=== PATIENT | male | born 1955 | race Caucasian/White ===

== ENCOUNTER 2022-01-03 00:17 | Inpatient (IN) | payer OTHER ==
[~2022-01-03] VITALS: Ht 175.3 cm; Wt 77.1 kg
[2022-01-03 01:48] LABS: BASOPHILS ABSOLUTE AUTO 0.03 K/mm3 (0.00-0.23); BASOPHILS PERCENT AUTO 0 % (0-2); EOSINOPHILS ABSOLUTE AUTO 0.03 K/mm3 (0.00-0.68); EOSINOPHILS PERCENT AUTO 0 % (0-6); Hematocrit 48.3 % (37.0-53.0); Hemoglobin 16.3 g/dL (13.5-17.5); IMMATURE GRAN ABSOLUTE AUTO 0.04 K/mm3 (0.00-0.10); IMMATURE GRAN PERCENT AUTO 0 % (0-1); LYMPHOCYTES PERCENT AUTO 14 % (21-46); MONOCYTES PERCENT AUTO 13 % (4-13); Mean Corpuscular HGB 29.7 pg (26.0-34.0); Mean Corpuscular HGB Conc 33.7 g/dL (31.5-36.5); Mean Corpuscular Volume 88 fL (80-100); Mean Platelet Volume 9.6 fL (9.1-12.4); NEUTROPHILS ABSOLUTE AUTO 6.53 K/mm3 (1.96-9.15); NEUTROPHILS PERCENT AUTO 72 % (41-73); Platelet Count 387 K/mm3 (150-400); RDW Coefficient Variation 13.2 % (11.7-14.2); RDW Standard Deviation 43.1 fL (35.1-46.3); Red Blood Cell Count 5.48 M/mm3 (4.30-5.90); White Blood Cell Count 9.13 K/mm3 (4.00-11.30)
[2022-01-03 02:07] LABS: Albumin, Blood 3.7 g/dL (3.4-5.0); Albumin/Globulin Ratio 0.9 (0.8-1.8); Bilirubin, Total 0.8 mg/dL (0.1-1.0); Bun/Creatinine Ratio 33.5 (12.0-20.0); Calcium, Blood 8.9 mg/dL (8.5-10.1); Creatinine, Blood 1.58 mg/dL (0.60-1.20); Globulin, Blood 4.2 g/dL (2.2-4.0); Potassium, Blood 4.1 mmol/L (3.5-5.5); Total Protein, Blood 7.9 g/dL (6.4-8.2)
[2022-01-03 04:55] LABS: International Normalized Ratio 1.03; Prothrombin Time Results 10.8 Sec (9.7-11.5)
[2022-01-03 05:49] LABS: Influenza A, PCR NEGATIVE (NEGATIVE); Influenza B, PCR NEGATIVE (NEGATIVE); Resp Syncytial Virus, PCR NEGATIVE (NEGATIVE); SARS-Cov-2 (COVID-19) PCR, MMC NEGATIVE (NEGATIVE)
--- NOTE | 2022-01-03 10:42 | NUR ---
PT TO OR AT APROX 1042.
--- NOTE | 2022-01-03 16:30 | NUR ---
PT ARRIVED BACK TO ROOM FROM PACU AT APROX 1600. MIDLINE DRESSING WITH SMALL DIME SIZE AREA AMT SS DRAINAGE. PT SLEEPING BUT AWAKENS EASILY TO VERBAL STIMULI. NGT TO LIS.
--- NOTE | 2022-01-03 16:51 | NUR ---
PT REPORTS FEELING THE NEED TO HAVE A BM, ASSISTED ON TO BEDPAN. SMALL AMT APROX 50ML REDDISH/BROWN LIQUID BM.
--- NOTE | 2022-01-03 18:40 | NUR ---
RED STOOL PT HAD LARGE RED STOOL IN BED. THIS RN + EMS DIRECTOR AT BEDSIDE. INFORMED + NEW ORDERS OBTAINED. VSS. LINENS CHANGED. CALL LIGHT WITHIN REACH. AWAITING LAB.
[2022-01-03 19:01] LABS: Hematocrit 36.3 % (37.0-53.0); Hemoglobin 12.4 g/dL (13.5-17.5)
[2022-01-04 00:29] LABS: Hematocrit 33.3 % (37.0-53.0); Hemoglobin 10.9 g/dL (13.5-17.5); Mean Corpuscular HGB 30.4 pg (26.0-34.0); Mean Corpuscular HGB Conc 32.7 g/dL (31.5-36.5); Mean Platelet Volume 10.1 fL (9.1-12.4); Platelet Count 302 K/mm3 (150-400); RDW Coefficient Variation 13.4 % (11.7-14.2); RDW Standard Deviation 45.9 fL (35.1-46.3); Red Blood Cell Count 3.59 M/mm3 (4.30-5.90); White Blood Cell Count 4.23 K/mm3 (4.00-11.30)
[2022-01-04 00:31] LABS: Mean Corpuscular Volume 93 fL (80-100)
[2022-01-04 00:44] LABS: Bun/Creatinine Ratio 35.9 (12.0-20.0); Calcium, Blood 7.5 mg/dL (8.5-10.1); Creatinine, Blood 1.53 mg/dL (0.60-1.20)
[2022-01-04 00:53] LABS: BAND PERCENT MAN 19 % (0-8); BASOPHILS ABSOLUTE MAN 0.04 K/mm3 (0.00-0.23); BASOPHILS PERCENT MAN 1 % (0-2); EOSINOPHILS PERCENT MAN 0 % (0-6); LYMPHOCYTES ABSOLUTE MAN 0.63 K/mm3 (0.84-5.20); LYMPHOCYTES PERCENT MAN 15 % (21-46); MONOCYTES ABSOLUTE MAN 0.67 K/mm3 (0.16-1.47); MONOCYTES PERCENT MAN 16 % (4-13); NEUTROPHILS ABSOLUTE MAN 2.87 K/mm3 (1.96-9.15); SEG NEUTROPHILS PERCENT MAN 49 % (41-73); TOTAL CELLS COUNTED 100
[2022-01-04 06:16] LABS: Hematocrit 31.9 % (37.0-53.0); Hemoglobin 10.6 g/dL (13.5-17.5)
--- NOTE | 2022-01-04 06:18 | NUR ---
SHIFT SUMMARY: PT IN BED AAOX4. VS WNL HR 110. MONITORING. O2 AT 2L NC. NGT TO WALL SX LOW INTER. IV IN RIGHT ARM PATENT WITH LR INFUSING ORDERED. MIDLINE DRESSING ON ABDOMEN C/D/I WITH RODRIGO. BARONE CATHETER IN PLACE NHAN COLORED URINE PRESENT. PASSING LARGE AMOUNT OF JOSE DANIEL BLOOD WITH CLOTS. DIAPER CHANGED X2 ON SHIFT. DR WALTER AT BEDSIDE EXAMINED PT. WILL CONTINUE TO MONITOR AND MAINTAIN ALL PRECAUTION. BG AT 235MG/DL. MEDICATED PER EMAR TOLERATED WELL. MANUFACTURING PROJECT ENGINEER PUMP PT SELF MEDICATE.
[2022-01-04 12:30] LABS: Hematocrit 26.5 % (37.0-53.0); Hemoglobin 8.9 g/dL (13.5-17.5)
[2022-01-04 17:05] LABS: Hematocrit 28.4 % (37.0-53.0); Hemoglobin 9.7 g/dL (13.5-17.5)
--- NOTE | 2022-01-04 19:03 | NUR ---
SUMMARY PT H&H IMPROVED FROM 1200 TO 1800. NG PUTTING OUT DARK BROWN FLUID. MEDICATED ONCE DURING SHIFT FOR NAUSEA. ADVISED PT TO SLOW DOWN ON ICE CHIPS. COVERED CBGS PER ORDERS. USING CLASS C DRIVER PRN FOR PAIN. CALL LIGHT AND CLASS C DRIVER IN REACH.
[2022-01-05 04:44] LABS: Hematocrit 26.6 % (37.0-53.0); Hemoglobin 8.5 g/dL (13.5-17.5); Mean Corpuscular HGB 29.9 pg (26.0-34.0); Mean Corpuscular Volume 94 fL (80-100); Mean Platelet Volume 10.2 fL (9.1-12.4); Platelet Count 248 K/mm3 (150-400); RDW Coefficient Variation 13.4 % (11.7-14.2); Red Blood Cell Count 2.84 M/mm3 (4.30-5.90); White Blood Cell Count 4.97 K/mm3 (4.00-11.30)
[2022-01-05 05:02] LABS: Anion Gap 5 mmol/L (6-16); Blood Urea Nitrogen 43 mg/dL (8-24); Bun/Creatinine Ratio 53.6 (12.0-20.0); CO2, Blood 27 mmol/L (21-32); Calcium, Blood 7.5 mg/dL (8.5-10.1); Chloride, Blood 103 mmol/L (98-108); Glomerular Filtration Rate >60 (60-); Glucose, Blood 226 mg/dL (70-99); Phosphorus, Blood 1.8 mg/dL (2.5-4.9); Potassium, Blood 4.1 mmol/L (3.5-5.5); Sodium, Blood 135 mmol/L (136-145)
[2022-01-05 05:35] LABS: BAND PERCENT MAN 6 % (0-8); BASOPHILS PERCENT MAN 0 % (0-2); EOSINOPHILS ABSOLUTE MAN 0.09 K/mm3 (0.00-0.68); EOSINOPHILS PERCENT MAN 2 % (0-6); LYMPHOCYTES % ATYPICAL MANUAL 1 % (0-0); LYMPHOCYTES ABSOLUTE MAN 0.84 K/mm3 (0.84-5.20); LYMPHOCYTES PERCENT MAN 16 % (21-46); METAMYELOCYTE ABSOLUTE MAN 0.04 K/mm3 (0.00-0.00); METAMYELOCYTE PERCENT MAN 1 % (0-0); MONOCYTES ABSOLUTE MAN 0.59 K/mm3 (0.16-1.47); MONOCYTES PERCENT MAN 12 % (4-13); MYELOCYTE ABSOLUTE MAN 0.09 K/mm3 (0.00-0.00); MYELOCYTE PERCENT MAN 2 % (0-0); NEUTROPHILS ABSOLUTE MAN 3.28 K/mm3 (1.96-9.15); SEG NEUTROPHILS PERCENT MAN 60 % (41-73); TOTAL CELLS COUNTED 100
--- NOTE | 2022-01-05 06:23 | NUR ---
SHIFT SUMMARY: PT IN BED AAOX4. VS WNL. O2 AT 2L NC. NGT IN PLACE TO LIS WITH BROWNISH DRAINAGE 500ML OUTPUT ON SHIFT. IV IN RIGHT ARM INFUSING ORDERED TOLERATING WELL. SHIPPING AND RECEIVING SUPERVISOR PUMP SELF MEDICATE WITH FENTANYL. ABD. DRESSING MIDLINE WITH SMALL DRY BLOOD. PT COMPLAINS OF SOME PAIN AND NAUSEA. MONITORING AND MAINTAINING ALL PRECAUTIONS.
--- NOTE | 2022-01-05 15:57 | NUR ---
DR WALTER IN TO SEE PT/FAMILY
--- NOTE | 2022-01-05 17:04 | NUR ---
SUMMARY NG HAD 375 OUT THIS SHIFT. CLAMPED NG PER ORDERS. INSTRUCTED PT TO LET STAFF KNOW IF BECOMES NAUSEATED. DC'D BARONE CATH. STARTED PPN PER ORDERS. ASSISTED PT TO CHAIR W/GAIT BELT. LEGS WEAK/UNSTEADY. PT NOW SITTING UP IN CHAIR W/INSIDE BARREL LATHE OPERATOR AND CALL LIGHT IN REACH.
--- NOTE | 2022-01-05 22:36 | NUR ---
pt was complaining of being too warm, retook vitals per rn request. pt now has two fans on him and is stripped of blankets trying to cool down.
--- NOTE | 2022-01-06 04:47 | NUR ---
PT IS ALERT AND ORIENTED X4. LUNGS ARE CLEAR. BS HYPOACTIVE AND SEMI FIRM. NAUSEATED AT THE BEGINNING OF THE SHIFT; NG TUBE GOT UNCLAMPPED. INCISION COVERED WITH KARLO DRESSING. VOIDING THRU THE NIGHT USING THE URINAL. UP TO THE COMMODE ONCE WITH ONE ASSISTS. FENTANYL CAR CONDITIONER FOR PAIN. PPN AT 93 ML/HR. CBG EVERY 6 HRS. WILL CONTINUE TO MONITOR
[2022-01-06 05:34] LABS: Hematocrit 24.8 % (37.0-53.0); Hemoglobin 8.2 g/dL (13.5-17.5); Mean Corpuscular HGB 30.1 pg (26.0-34.0); Mean Corpuscular HGB Conc 33.1 g/dL (31.5-36.5); Mean Corpuscular Volume 91 fL (80-100); Mean Platelet Volume 10.3 fL (9.1-12.4); Platelet Count 294 K/mm3 (150-400); RDW Coefficient Variation 13.1 % (11.7-14.2); RDW Standard Deviation 43.5 fL (35.1-46.3); Red Blood Cell Count 2.72 M/mm3 (4.30-5.90); White Blood Cell Count 6.73 K/mm3 (4.00-11.30)
[2022-01-06 06:03] LABS: BAND PERCENT MAN 16 % (0-8); BASOPHILS PERCENT MAN 0 % (0-2); EOSINOPHILS ABSOLUTE MAN 0.06 K/mm3 (0.00-0.68); EOSINOPHILS PERCENT MAN 1 % (0-6); LYMPHOCYTES ABSOLUTE MAN 1.21 K/mm3 (0.84-5.20); LYMPHOCYTES PERCENT MAN 18 % (21-46); METAMYELOCYTE ABSOLUTE MAN 0.06 K/mm3 (0.00-0.00); METAMYELOCYTE PERCENT MAN 1 % (0-0); MONOCYTES ABSOLUTE MAN 0.87 K/mm3 (0.16-1.47); MONOCYTES PERCENT MAN 13 % (4-13); MYELOCYTE ABSOLUTE MAN 0.13 K/mm3 (0.00-0.00); MYELOCYTE PERCENT MAN 2 % (0-0); NEUTROPHILS ABSOLUTE MAN 4.37 K/mm3 (1.96-9.15); SEG NEUTROPHILS PERCENT MAN 49 % (41-73); TOTAL CELLS COUNTED 100
[2022-01-06 06:13] LABS: Anion Gap 4 mmol/L (6-16); Blood Urea Nitrogen 21 mg/dL (8-24); CO2, Blood 30 mmol/L (21-32); Calcium, Blood 7.5 mg/dL (8.5-10.1); Chloride, Blood 102 mmol/L (98-108); Creatinine, Blood 0.58 mg/dL (0.60-1.20); Glomerular Filtration Rate >60 (60-); Glucose, Blood 241 mg/dL (70-99); Magnesium, Blood 2.7 mg/dL (1.6-2.4); Phosphorus, Blood 1.4 mg/dL (2.5-4.9); Potassium, Blood 3.9 mmol/L (3.5-5.5); Sodium, Blood 136 mmol/L (136-145); Triglycerides 137 mg/dL (30-160)
--- NOTE | 2022-01-06 06:44 | NUR ---
FENTANYL LABORATORY TECHNOLOGY TEACHER USED 200 MCG.
--- NOTE | 2022-01-06 12:06 | NUR ---
01/06/22 1206 Adela Wu VERIFICATIONS: EDIT CHART.
--- NOTE | 2022-01-06 18:29 | NUR ---
SHIFT SUMMARY PT POD 0 COLECTOMY. MIDLINE INCISION W/PICCO DRESSING-DIME SZ AMT DRY SS DRAINAGE PRESENT, DRESSING COMPRESSED. PT HAS FENTYNAL ENERGY ANALYST FOR PAIN, REPORTS PAIN IS TOLERABLE 2/10-APPEARS TO REST COMFORTABLY T/O SHIFT. PT UP TO CHAIR AND SHOWER 1 ASSIST W/FWW FOR ASSISTANCE WITH LINES. LUNGS DIM IN BASES, PT ENCOURAGED TO USE INCENTIVE SPIROMETER, DEMONSTRATES USE. PT TOLERATING SIPS/CHIPS WITH NO N/V, REPORTS SMALL AMTS FLATUS-NO BM. PPN RUNNING PER EMAR.
[2022-01-07 04:30] LABS: Hemoglobin 7.6 g/dL (13.5-17.5); Mean Corpuscular Volume 91 fL (80-100); Mean Platelet Volume 9.9 fL (9.1-12.4); NRBC ABSOLUTE 0.03 K/mm3 (0.00-0.02); NRBC Auto 0.5 /100 WBC (0.0-0.2); Platelet Count 285 K/mm3 (150-400); RDW Coefficient Variation 13.2 % (11.7-14.2); RDW Standard Deviation 43.5 fL (35.1-46.3); Red Blood Cell Count 2.53 M/mm3 (4.30-5.90); White Blood Cell Count 6.62 K/mm3 (4.00-11.30)
[2022-01-07 04:51] LABS: Anion Gap 5 mmol/L (6-16); Blood Urea Nitrogen 14 mg/dL (8-24); Bun/Creatinine Ratio 23.6 (12.0-20.0); CO2, Blood 29 mmol/L (21-32); Calcium, Blood 7.7 mg/dL (8.5-10.1); Chloride, Blood 104 mmol/L (98-108); Creatinine, Blood 0.59 mg/dL (0.60-1.20); Glomerular Filtration Rate >60 (60-); Glucose, Blood 228 mg/dL (70-99); Magnesium, Blood 2.2 mg/dL (1.6-2.4); Potassium, Blood 3.7 mmol/L (3.5-5.5); Sodium, Blood 138 mmol/L (136-145)
[2022-01-07 04:59] LABS: BAND PERCENT MAN 13 % (0-8); BASOPHILS PERCENT MAN 0 % (0-2); EOSINOPHILS PERCENT MAN 0 % (0-6); LYMPHOCYTES ABSOLUTE MAN 1.65 K/mm3 (0.84-5.20); LYMPHOCYTES PERCENT MAN 25 % (21-46); METAMYELOCYTE ABSOLUTE MAN 0.06 K/mm3 (0.00-0.00); METAMYELOCYTE PERCENT MAN 1 % (0-0); MONOCYTES ABSOLUTE MAN 1.32 K/mm3 (0.16-1.47); MONOCYTES PERCENT MAN 20 % (4-13); MYELOCYTE ABSOLUTE MAN 0.19 K/mm3 (0.00-0.00); MYELOCYTE PERCENT MAN 3 % (0-0); NEUTROPHILS ABSOLUTE MAN 3.37 K/mm3 (1.96-9.15); SEG NEUTROPHILS PERCENT MAN 38 % (41-73); TOTAL CELLS COUNTED 100
--- NOTE | 2022-01-07 07:13 | NUR ---
POD 4 S/P COLECTOMY. PT RESTING IN BED THIS AM, VSS. KARLO DRESSING INTACT W/NO INCREASED DRNG. BT MORE ACTIVE THIS AM, PT PASSING QUITE A BIT OF FLATUS. PT HAD NO C/O N/V, NAWAF ICE CHIPS AND SIPS OF WATER. PAIN MGD W/TESTING ANALYST W/REP RELIEF. URINE EARLY BREASTFEEDING CARE SPECIALIST IN COLOR THIS AM, PT VOIDING W/O DIFFICULTY. PT UP TO SOB W/SBA, NAWAF WELL.
--- NOTE | 2022-01-07 09:12 | NUR ---
PT HAD LARGE LOOSE MAROON BM, NO BRIGHT RED BLOOD NOTED.
--- NOTE | 2022-01-07 19:23 | NUR ---
SHIFT SUMMARY PT POD 4 COLECTOMY. MIDLINE INCISION WITH PICCO C/D/I. PT HAS DONE WELL T/O SHIFT, AMBULATING IN ROOM/TO BATHROOM AND UP TO RECLINER. 2 LARGE MAROON BM AND REPORTS FLATUS. PT ADVANCED TO CLEAR LIQUID DIET, PIE MAKER MACHINE DC'D AND STARTED ON PO PAIN MEDICATION. PPN RUNNING PER EMAR.
[2022-01-08 04:42] LABS: Hematocrit 23.7 % (37.0-53.0); Hemoglobin 7.7 g/dL (13.5-17.5); Mean Corpuscular HGB 29.8 pg (26.0-34.0); Mean Corpuscular HGB Conc 32.5 g/dL (31.5-36.5); Mean Corpuscular Volume 92 fL (80-100); NRBC ABSOLUTE 0.02 K/mm3 (0.00-0.02); NRBC Auto 0.3 /100 WBC (0.0-0.2); Platelet Count 331 K/mm3 (150-400); RDW Coefficient Variation 13.5 % (11.7-14.2); RDW Standard Deviation 44.5 fL (35.1-46.3); Red Blood Cell Count 2.58 M/mm3 (4.30-5.90); White Blood Cell Count 6.73 K/mm3 (4.00-11.30)
--- NOTE | 2022-01-08 05:04 | NUR ---
PT IS A&O, SBA TO BR AND IS ABLE TO VERBALIZE NEEDS. ARRIVES TO HOSPITAL ON TUESDAY FOR LARGE INTESTINAL MASS. PT IS CURRENTLY ON PPN, TOLERATING GOAL RATE OF 93ML PER HOUR. Q6 BS CHECKS, HAVE BEEN 180-250 REQUIRING REGULAR INSULIN COVERAGE. PT HAS BEEN ABLE TO WALK THIS SHIFT AND WAS ABLE TO VOID AND HAVE A BM. PT REQUESTS THAT PAIN MEDICINE BE WITHHELD D/T NIGHTMARES AND POOR SLEEP, EDUCATED PT ON PAIN CONTROL TECHNIQUES THAT CAN BE USED. PT H&H IS 7.7.
[2022-01-08 05:05] LABS: BAND PERCENT MAN 20 % (0-8); BASOPHILS PERCENT MAN 0 % (0-2); EOSINOPHILS PERCENT MAN 3 % (0-6); LYMPHOCYTES ABSOLUTE MAN 1.88 K/mm3 (0.84-5.20); LYMPHOCYTES PERCENT MAN 28 % (21-46); METAMYELOCYTE PERCENT MAN 3 % (0-0); MONOCYTES ABSOLUTE MAN 1.54 K/mm3 (0.16-1.47); MONOCYTES PERCENT MAN 23 % (4-13); MYELOCYTE ABSOLUTE MAN 0.13 K/mm3 (0.00-0.00); MYELOCYTE PERCENT MAN 2 % (0-0); NEUTROPHILS ABSOLUTE MAN 2.75 K/mm3 (1.96-9.15); SEG NEUTROPHILS PERCENT MAN 21 % (41-73); TOTAL CELLS COUNTED 100
--- NOTE | 2022-01-08 19:15 | NUR ---
SHIFT SUMMARY PT POD #5 FOR WAI COLECTOMY DUE TO BOWEL OBSTRUCTION. NEW CANCER DIAGNOSIS. A/O X4; PLEASANT AND COOPERATIVE WITH CARE. TOLERATING CLEAR LIQUID DIET AND MOVED TO FULL LIQUID DIET. MEDICATED FOR PAIN X1 THIS SHIFT. TPN QUIN. JULIÁN. WILL REPORT TO GUILHERME GO.
--- NOTE | 2022-01-09 00:05 | NUR ---
PT REPORTS ROOM FEELING COLD TONIGHT.WARM BLANKETS WERE GIVEN.PT HAS BEEN RECEIVING NORCO FOR PAIN,BUT AT THIS TIME,C/O NAUSEA.MED WITH ZOFRAN IV. ABD DISTENDED WITH TINKLING BTS.REPORTED PT HAD BM TODAY. REQUESTING APPLE JUICE.I DISCUSSED CBG WITH PT AND BROUGHT APPLE JUICE SPLIT WITH H2O AND ICE FOR AFTER NAUSEA RESOLVED.ASKED PT TO CALL FOR ANY NEEDS.
--- NOTE | 2022-01-09 01:30 | NUR ---
PT VERB UPSET DUE TO BEING DISTURBED BY PAS ALARM.PT REMOVED PUMPS.IRONWORKER MACHINE OPERATOR REPORTED PT VERB BEING UNCOMFORTABLE AND UNABLE TO SLEEP. I OFFERED IV PAIN MEDS PT REFUSED.STATED UNSURE IF IT WOULD GIVE HIM BAD DREAMS.ASKING IF IT WOULD HAPPEN? I TOLD PT EACH PERSON REACTS DIFFERENTLY UNCLEAR IF IT MIGHT HAPPEN PT REPORTS HAS HX BAD DREAMS WITH MEDS IN PAST.PT RAISING VOICE SAYING HE ALREADY TOLD US THAT HE DOESNT WANT TO TAKE ANYTHING AND THE FACT THAT I CAN NOT SAY FOR SURE HE WILL NOT HAVE "WILD" DREAMS IS "BULLSHIT" STATES IT IS A STRAIGHT FORWARD AND COMMON SENSE QUESTION AND I SHOULD KNOW THE ANSWER.PT ALSO COMPLAINS ABOUT WARM AND COLD TEMP FLUCTUATIONS THIS SHIFT.ADVISED PT HEATING SYSTEM HAS SEEMED TO HAVE MORE FLUCTUATIONS TONIGHT THAN USUAL AND I APOLOGIZED FOR THIS.PT STATES NURSES ARE "MESSING WITH" HEATING SYSTEM.OFFERED MORE WARM BLANKETS AND PT HAS FAN AT BEDSIDE.PT ALSO C/O EVERY LITTLE NOISE DISTURBING HIM. OFFERED EAR PLUGS WHICH PT ALSO DECLINED STATING HE CAN NOT WEAR THEM. PT CURRENTLY STATED IS COMFORTABLE AND WANTS TO BE LEFT ALONE. ASKED PT TO CALL FOR ANY NEEDS AND CLOSED DOOR PER PT INSTRUCT.
--- NOTE | 2022-01-09 06:56 | NUR ---
SUMMARY PT SLEEPING, HAD LARGE SOFT BROWN BM TONIGHT.NO BLEEDING NOTED.
--- NOTE | 2022-01-09 13:21 | NUR ---
PT REPORTS FEELING IMPROVED AFTER EATING LUNCH.
--- NOTE | 2022-01-09 17:03 | NUR ---
SUMMARY NO ACUTE CHANGES T/O SHIFT. MEDICATED PT ONCE THIS AFTERNOON FOR ABDOMINAL PAIN AND THIS EVENING FOR CHAPA PAIN PER ORDERS. PT FELT IMPROVED AFTER LUNCH AND SHOWER. ORDERS TO ADVANCE TO REGULAR DIET FOR DINNER. CALL LIGHT IN REACH.
--- NOTE | 2022-01-10 04:42 | NUR ---
SHIFT SUMMARY PT RESTED OFF AND T/O SHIFT. PT DIET WAS ADVANCED YESTERDAY TO REGULAR, PT REPORTS THAT HE ATE MOST OF WHAT WAS ON HIS PLATE AND ONLY LEFT ABOUT HALF OF A CHICKEN BREAST, BUT ATE EVERYTHING ELSE ON HIS PLATE. PT HAD 4-5 BOWEL MOVEMENTS THIS SHIFT. SOME FORMED STOOLS AND SOME WERE SOMEWHAT LOOSE. PT DENIES ANY NAUSEA OR VOMITTING. MEDICATED FOR CHAPA THIS SHIFT WITH EFFECT. PT HAS BEEN INDEPENDENT IN THE ROOM. KARLO DRESSING PLACE, CLEAN AND DRY WITH NO NEW DRAINAGE. PLAN IS FOR POSSIBLE DC TODAY. BED IN LOWEST POSITION, CALL LIGHT WITHIN REACH.
[2022-01-10] MEDS ORDERED: HYDR1TAB94 PO (12:55)
--- NOTE | 2022-01-10 13:25 | NUR ---
DISCHARGED REVIEWED DC INSTRUCTIONS W/PT; VERBALIZED UNDERSTANDING. DC'D IV, CATHETER INTACT. REMOVED KARLO DRESSING AND PLACED MEDIPORE TO ABD INCISION. PROVIDED DRESSINGS FOR PT. PT LEFT UNIT IN WC, W/POSSESSIONS, DC PAPERWORK, PRESCRIPTION, AND DRESSINGS ACCOMPANIED BY FAMILY.
[2022-02-18] MEDS ORDERED: POLY500 PO (16:13)
[2022-02-18] MEDS ORDERED: METF500 PO (16:14)
== END 2022-01-10 13:25 | disposition home or self-care (01) | DRG 330 ==
LOC: ER 00:17 → SURS 04:11
PROVIDERS: Student in an Organized Health Care Education/Training Program; ADMIT Surgery
PROC: 0DBN0ZZ Excision of Sigmoid Colon, Open Approach (ICD-10-PCS; principal; 2022-01-03 11:00)
DX: C18.7 Malignant neoplasm of sigmoid colon (principal); C77.2 Secondary and unspecified malignant neoplasm of intra-abdominal lymph nodes; D62 Acute posthemorrhagic anemia; Z20.822 Contact with and (suspected) exposure to COVID-19; E83.39 Other disorders of phosphorus metabolism; E11.9 Type 2 diabetes mellitus without complications; F17.210 Nicotine dependence, cigarettes, uncomplicated; Z98.890 Other specified postprocedural states; Z28.21 Immunization not carried out because of patient refusal
CPT/HCPCS: 0241U; 36415; 71045; 74177; 80048; 80053; 82947; 83036; 83605; 83690; 83735; 84100; 84478; 85014; 85018; 85025; 85610; 85730; 86850; 86900; 86901; 93005; 93010; 96374; 96375; 99285-25; A9270; C9113; J0295; J1100; J1815; J1885; J2270; J2405; J2704; J2710; J3010; J3411; J7030; J7040; J7042; J7050; J7060; J7120; Q9967

== ENCOUNTER 2022-02-24 09:20 | Day surgery (SDC) | payer OTHER ==
[~2022-02-24] VITALS: Ht 175.3 cm; Wt 80.1 kg
[~2022-02-24 09:20] MED LIST: HYDR1TAB94 PO; METF500 PO; POLY500 PO
--- NOTE | 2022-02-24 10:54 | NUR ---
Ambulatory in Day Surgery History, Chart, Medications and Allergies reviewed before start of procedure. Lungs clear T/O to Auscultation. Patient confirms NPO status and agrees with scheduled surgery. Pre-Op teaching done. Pt verbalizes understanding. Patient States Post-Procedure ride home has been arranged.
--- NOTE | 2022-02-24 13:37 | NUR ---
Ambulatory in Day SurgeryBair Paws warming gown applied. Discharge instructions reviewed with patient. Patient verbalizes understanding. Copy given to patient to take home. History, Chart, Medications and Allergies reviewed before start of procedure.Patient States Post-Procedure ride home has been arranged. Discharged via wheelchair to private car for ride home.
== END 2022-02-24 14:07 | disposition home or self-care (01) ==
LOC: ORSCMMR 09:20 → ORD 10:45 → ORSCMMR 10:45
PROVIDERS: Surgery
PROC: 05HM33Z Insertion of Infusion Device into Right Internal Jugular Vein, Percutaneous Approach (ICD-10-PCS; principal; 2022-02-24 10:45)
PROC: B543ZZA Ultrasonography of Right Jugular Veins, Guidance (ICD-10-PCS; principal; 2022-02-24 10:45)
DX: C18.9 Malignant neoplasm of colon, unspecified (principal); C78.6 Secondary malignant neoplasm of retroperitoneum and peritoneum; I10 Essential (primary) hypertension; J44.9 Chronic obstructive pulmonary disease, unspecified; F17.210 Nicotine dependence, cigarettes, uncomplicated; E11.9 Type 2 diabetes mellitus without complications; Z79.84 Long term (current) use of oral hypoglycemic drugs
CPT/HCPCS: 77001; 82947; C1788; J0690; J1100; J1642; J2250; J2405; J2704; J3010; J7120

== ENCOUNTER 2023-04-01 07:30 | Day surgery (SDC) | payer OTHER ==
[~2023-04-01] VITALS: Ht 175.3 cm; Wt 91.9 kg
[2023-04-01] MEDS ORDERED: Prinivil10 MG (07:43)
[2023-04-01] MEDS ORDERED: OLME20 (07:44)
[2023-04-01] MEDS ORDERED: INSULANI (07:45)
[2023-04-01 09:56] VITALS: BP 162/68
== END 2023-04-01 09:49 | disposition home or self-care (01) ==
LOC: ORSCSDS 07:30
PROVIDERS: Surgery
PROC: 0DBH8ZX Excision of Cecum, Via Natural or Artificial Opening Endoscopic, Diagnostic (ICD-10-PCS; principal; 2023-04-01 08:45)
PROC: 0DBK8ZX Excision of Ascending Colon, Via Natural or Artificial Opening Endoscopic, Diagnostic (ICD-10-PCS; principal; 2023-04-01 08:45)
PROC: 0DBN8ZX Excision of Sigmoid Colon, Via Natural or Artificial Opening Endoscopic, Diagnostic (ICD-10-PCS; principal; 2023-04-01 08:45)
DX: Z12.11 Encounter for screening for malignant neoplasm of colon (principal); Z85.038 Personal history of other malignant neoplasm of large intestine; C78.6 Secondary malignant neoplasm of retroperitoneum and peritoneum; D12.0 Benign neoplasm of cecum; D12.2 Benign neoplasm of ascending colon; D12.5 Benign neoplasm of sigmoid colon; K63.5 Polyp of colon; E11.9 Type 2 diabetes mellitus without complications; F17.210 Nicotine dependence, cigarettes, uncomplicated; Z79.4 Long term (current) use of insulin; Z79.84 Long term (current) use of oral hypoglycemic drugs; Z79.899 Other long term (current) drug therapy
CPT/HCPCS: 82947; 88305; J2704; J7120

== ENCOUNTER 2024-09-28 09:07 | Day surgery (SDC) | payer OTHER ==
[2024-09-28] VITALS (7 sets, daily range): BP systolic 168–193; BP diastolic 64–82
[~2024-09-28] VITALS: Ht 175.3 cm; Wt 85.8 kg
[~2024-09-28 09:07] MED LIST changes: +INSULANI; +OLME20; +Prinivil10 MG; +propofoL 20 ML IV ONE
[2024-09-28] MEDS ORDERED: CeFAZolin Sodium 2,000 MG in NS 100 ML IV SCH (09:15)
[2024-09-28] MEDS ORDERED: Lactated Ringer's 1,000 ML IV SCH (09:15)
[2024-09-28] MEDS ORDERED: FARXIGA10 MG PO (09:49)
[2024-09-28] MEDS ORDERED: SEMGLEE (Y100 UNIT/2 SC (09:49)
[2024-09-28] MEDS ORDERED: LISI20 PO (09:49)
[2024-09-28] MEDS ORDERED: METFORMIN HCL500 M3 PO (09:50)
[2024-09-28] MEDS ORDERED: ROSUVASTATIN CA40 MG PO (09:50)
[2024-09-28] MEDS ORDERED: METOPROLOL SUCC25 MG PO (09:50)
[2024-09-28] MEDS ORDERED: EPCLUSA 400 MG1 EAC1 PO (09:54)
[2024-09-28] MEDS ORDERED: CICLOPIROX60 ML TOP (09:54)
[2024-09-28] MEDS ORDERED: Bupivacaine 0.5% HCl 5 MG/ML 30MLVIAL ONE (10:14)
[2024-09-28] MEDS ORDERED: Lidocaine HCl 1% 30 ML SDV ONE (10:14)
--- NOTE | 2024-09-28 13:05 | NUR ---
PT TO DAY SURGERY FROM PACU WITH MEDIPORT PLACEMENT; BEDSIDE REPORT RECEIVED. PT IS AWAKE, ALERT AND ORIENTED; ABLE TO MOVE SELF IN BED. BP ELEVATED AND HAS BEEN THROUGOUT HOSPITAL STAY. PT HAS 1 INCISION ON HIS RIGHT LOWER NECK AND ONE ON HIS RIGHT UPPER CHEST; BOTH ARE COVERED WITH GUAZE AND TEGADERM AND ARE C/D/I. PT DENIES PAIN AT THIS TIME.
--- NOTE | 2024-09-28 13:13 | NUR ---
PLACEMENT CONFIRMED BY DR. FERRARA.
--- NOTE | 2024-09-28 13:13 | NUR ---
RADIOLOGY CALLED TO CONFIRM PLACEMENT OF MEDIPORT. PT DECLINES PO FLUIDS AT THIS TIME.
--- NOTE | 2024-09-28 13:16 | NUR ---
INCISIONS REMAIN C/D/I, PT DECLINES ICE PACK
--- NOTE | 2024-09-28 13:20 | NUR ---
Discharge instructions reviewed with patient. Patient verbalizes understanding. Copy given to patient to take home. Patient States Post-Procedure ride home has been arranged.
--- NOTE | 2024-09-28 13:25 | NUR ---
Patient up to Ambulate independently. Gait steady. Up to void.
--- NOTE | 2024-09-28 13:45 | NUR ---
Discharged via wheelchair to private car for ride home.
== END 2024-09-28 13:45 | disposition home or self-care (01) ==
LOC: ORSCMMR 09:07 → ORD 10:45 → ORSCMMR 10:45
PROVIDERS: Surgery
PROC: 0JH60WZ Insertion of Totally Implantable Vascular Access Device into Chest Subcutaneous Tissue and Fascia, Open Approach (ICD-10-PCS; principal; 2024-09-28 10:45)
DX: C18.7 Malignant neoplasm of sigmoid colon (principal); C77.1 Secondary and unspecified malignant neoplasm of intrathoracic lymph nodes; E11.9 Type 2 diabetes mellitus without complications; I10 Essential (primary) hypertension; E78.5 Hyperlipidemia, unspecified; Z79.84 Long term (current) use of oral hypoglycemic drugs; Z79.4 Long term (current) use of insulin; Z79.899 Other long term (current) drug therapy; F17.210 Nicotine dependence, cigarettes, uncomplicated
CPT/HCPCS: 36415; 77001; 80053; 82043; 82378; 82570; 82728; 82947; 83540; 83550; 85025; C1788; J0690; J1642; J2704; J7120

== ENCOUNTER → 2024-12-08 | Outpatient (CLI) | payer OTHER ==
[~2024-12-08] MED LIST changes: +CICLOPIROX60 ML TOP; +EPCLUSA 400 MG1 EAC1 PO; +FARXIGA10 MG PO; +LISI20 PO; +METFORMIN HCL500 M3 PO; +METOPROLOL SUCC25 MG PO; +ROSUVASTATIN CA40 MG PO; +SEMGLEE (Y100 UNIT/2 SC; -propofoL 20 ML IV ONE
== END ==
LOC: LAB SHORT 09:18 → LAB 09:18
DX: R35.0 Frequency of micturition (principal)
CPT/HCPCS: 87086

== ENCOUNTER 2025-01-07 08:04 | Day surgery (SDC) | payer OTHER ==
[~2025-01-07] VITALS: Ht 170.2 cm; Wt 80.5 kg
[2025-01-07] VITALS (14 sets, daily range): BP systolic 127–181; BP diastolic 51–111
[~2025-01-07 08:04] MED LIST changes: +ASPI81CH PO; +INSULANI SC
[2025-01-07] MEDS ORDERED: Nitroglycerin 2 MG/20 ML BTL ONE (08:19)
[2025-01-07] MEDS ORDERED: Heparin Sodium 1000 Units/ML 10ML MDV ONE ×3 (08:19→10:28)
[2025-01-07] MEDS ORDERED: NS 250 ML IV ONE (08:19)
[2025-01-07] MEDS ORDERED: NS 1,000 ML IV ONE ×2 (08:19→08:41)
[2025-01-07] MEDS ORDERED: Verapamil HCL 2.5 MG/ML 2ML Injection ONE (08:19)
[2025-01-07] MEDS ORDERED: FentaNYL Citrate 50 MCG/ML 2 ML Injection ONE (08:41)
[2025-01-07] MEDS ORDERED: Midazolam HCl 1MG / ML 2ML Vial ONE (08:41)
[2025-01-07] MEDS ORDERED: Ticagrelor 90 MG TABLET ONE (09:36)
[2025-01-07] MEDS ORDERED: HydrALAZINE HCl 20 MG / ML 1ML Vial ONE (09:36)
[2025-01-07] MEDS ORDERED: Ondansetron HCl 2 MG / ML 2ML Vial ONE ×2 (09:56→10:09)
[2025-01-07] MEDS ORDERED: Atropine Sulfate 0.1 MG/ML 10ML SYR ONE (09:57)
--- NOTE | 2025-01-07 10:40 | NUR ---
PT BACK TO RECOVERY ROOM. PT ALERT AND ORIENTED, SITTING UP IN RECLINER. TR BAND TO R WRIST WITH [address] PT GIVEN BREAKFAST AND COFFEE.
--- NOTE | 2025-01-07 11:30 | NUR ---
PT AMBULATES TO BR AND BACK TO BED. TR BAND TO R RADIAL SITE SOFT AND NON TENDER. NO BLEEDING OR HEMATOMA NOTED.
--- NOTE | 2025-01-07 12:20 | NUR ---
BEGAN DEFLATING TR BAND. SMALL AMOUNT OF BLEEDING NOTED. NO SWELLING.
--- NOTE | 2025-01-07 13:00 | NUR ---
4 CC OUT OF TR BAND AND HEMATOMA NOTED. PRESSURE DRESSING APPLIED. 4 CC AIR REPLACED INTO TR BAND.
[2025-01-07] MEDS ORDERED: Carvedilol12.5 MG PO (13:02)
[2025-01-07] MEDS ORDERED: HYDCHL25 PO (13:03)
[2025-01-07] MEDS ORDERED: CLOP75 PO (13:03)
[2025-01-07] MEDS ORDERED: INSULANPEN (13:10)
--- NOTE | 2025-01-07 13:30 | NUR ---
SMALL HEMATOMA REMAINS. PRESSURE HELD. HEMATOMA DISPURSED.
--- NOTE | 2025-01-07 13:48 | NUR ---
BEGAN DEFLATING TR BAND AGAIN.
--- NOTE | 2025-01-07 14:03 | NUR ---
TR BAND FULLY DEFLATED. PT CALLED SON TO MECHANICAL EXPERT HIS MEDICATIONS FROM HIS PHARMACY SO HE CAN BEGIN TAKING PLAVIX TONIGHT.
--- NOTE | 2025-01-07 14:34 | NUR ---
PT AMBULATES TO BR AND GETTING DRESSED. ARM BOARD IN PLACE TO REMIND PT NOT TO USE R WRIST. RIDE ON HIS WAY.
--- NOTE | 2025-01-07 14:50 | NUR ---
IV D/C CATHETER INTACT. TR BAND REMOVED, CLOTH DOT PLACED, NO HEMATOMA, BUT BRUSINGING NOTED. LIGHT PRESSURE DRESSING APPLIED AND PT EDUCATED TO TAKE OFF TONIGHT OR WITH PAIN/ INCREASED SWELLING.
--- NOTE | 2025-01-07 15:00 | NUR ---
PT WHEELED OUT OF DEPT TO SON'S VEHICLE. D/C INSTRUCTIONS IN HAND. ARM BOARD IN PLACE.
== END 2025-01-07 15:00 | disposition home or self-care (01) ==
LOC: MHTC 08:04
DX: I35.0 Nonrheumatic aortic (valve) stenosis (principal); I10 Essential (primary) hypertension; E78.5 Hyperlipidemia, unspecified; E11.9 Type 2 diabetes mellitus without complications; J44.9 Chronic obstructive pulmonary disease, unspecified; Z79.899 Other long term (current) drug therapy; Z79.84 Long term (current) use of oral hypoglycemic drugs
CPT/HCPCS: 37252; 76937; 85347; 93454; 99152; 99153; A9270; C1725; C1753; C1769; C1874; C1887; C1894; C9600; J0360; J0461; J1644; J2250; J2405; J3010; J7030; J7050; Q9967

== ENCOUNTER → 2025-01-15 | Outpatient (CLI) | payer OTHER ==
[~2025-01-15] MED LIST changes: +CLOP75 PO; +Carvedilol12.5 MG PO; +HYDCHL25 PO; +INSULANPEN
[2025-01-17 08:24] LABS: HEPATITIS A ANTIBODY, IGM Negative (Negative); HEPATITIS B CORE ANTIBODY, IGM Negative (Negative); HEPATITIS B SURFACE ANTIGEN Negative (Negative); HEPATITIS C AB CIA INTERP High Pos (Negative); HEPATITIS C ANTIBODY CIA INDEX >11.00 IV
[2025-01-17 09:22] LABS: HEPATITIS B SURFACE ANTIBODY <3.10 IU/L; HEPATITIS B SURFACE ANTIGEN Negative (Negative); HEPATITIS BE ANTIBODY Negative (Negative); HEPATITIS BE ANTIGEN Negative (Negative)
[2025-01-18 20:04] LABS: HCV QNT BY NAAT (IU/ML) 2630000 IU/mL; HCV QNT BY NAAT (LOG IU/ML) 6.42; HCV QNT BY NAAT INTERP Detected (Not Detected)
== END ==
LOC: LAB 11:54 → LAB SHORT 11:54
PROVIDERS: Registered Nurse Oncology
DX: B17.10 Acute hepatitis C without hepatic coma (principal); R94.5 Abnormal results of liver function studies
CPT/HCPCS: 80074; 86707; 87340; 87350; 87522

== ENCOUNTER → 2025-10-05 | Outpatient (CLI) | payer OTHER ==
[2025-10-05 11:18] LABS: Creatinine, Urine Random 41.6 mg/dL (27.00-270.00); Microalbumin, Random Urine 244.0 mg/L (0.000-20.000)
== END ==
LOC: LAB 10:32 → LAB SHORT 10:32
PROVIDERS: Family Medicine
DX: E11.21 Type 2 diabetes mellitus with diabetic nephropathy (principal); E11.42 Type 2 diabetes mellitus with diabetic polyneuropathy; E11.51 Type 2 diabetes mellitus with diabetic peripheral angiopathy without gangrene; E11.59 Type 2 diabetes mellitus with other circulatory complications; E11.65 Type 2 diabetes mellitus with hyperglycemia
CPT/HCPCS: 82043; 82570